=== PATIENT | female | born 1965 | race Hispanic/Latino ===

== ENCOUNTER 2019-07-11 17:02 | Emergency (ER) | payer SELFPAY ==
[2019-07-11] MEDS ORDERED: CYCLOBENZAPRINE 10 MG TAB ONE (17:46)
[2019-07-11] MEDS ORDERED: LIDOCAINE 4% PATCH ONE (17:47)
[2019-07-11] MEDS ORDERED: KETOROLAC 30 MG/ML INJ ONE (17:47)
[2019-07-11] MEDS ORDERED: HYDROCODONE/APAP 10/325 TAB ONE (17:47)
[2019-07-11] MEDS ORDERED: dexAMETHasone 10 MG/ML VIAL ONE (18:46)
--- NOTE | 2019-07-11 19:15 | EDPHYS ---
Physician Documentation [facility] Name: Joselin Dodge Age: 53 yrs Sex: Female : 1965 Arrival Date: 07/11/2019 Time: 17:05 Bed 19 Private MD: ED Physician Hamilton Thrasher HPI: 07/10 17:32 This 53 yrs old Female presents to ER via Wheelchair with complaints of Back pm1 Pain. 17:32 The patient presents with pain that is acute. The symptoms are located in the right low pm1 back. Onset: The symptoms/episode began/occurred just prior to arrival. The pain radiates to the right leg. Associated signs and symptoms: Pertinent negatives: abdominal pain, chest pain, dysuria, fever, headache, nausea, vomiting, weakness. The problem was sustained when lifting boxes. Modifying factors: The patient symptoms are alleviated by nothing, the patient symptoms are aggravated by movement. Severity of symptoms: in the emergency department the symptoms are actually worse. The patient has not experienced similar symptoms in the past. The patient has not recently seen a physician. Patient was moving today and she lifted an object with her right arm and then she felt a pull and pain in her right lower back. Right lower back pain radiates to right leg. Patient reports a history of herniated discs. 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 - Social history:: Smoking status: Patient denies any tobacco usage or history of. ROS: 18:06 Constitutional: Negative for fever, chills, and weight loss, Neck: Negative for injury, pm1 pain, and swelling, Cardiovascular: Negative for chest pain, palpitations, and edema, Respiratory: Negative for shortness of breath, cough, wheezing, and pleuritic chest pain. 18:06 : Negative for injury, bleeding, discharge, and swelling, MS/Extremity: Negative for injury and deformity, Skin: Negative for injury, rash, and discoloration, Neuro: Negative for headache, weakness, numbness, tingling, and seizure. 18:06 Abdomen/GI: Positive for nausea, vomiting, and diarrhea, Negative for abdominal pain, constipation. 18:06 Back: Positive for flank pain, on the right. Exam: 18:06 Constitutional: This is a well developed, well nourished patient who is awake, alert, pm1 and in no acute distress. Head/Face: Normocephalic, atraumatic. Chest/axilla: Normal chest wall appearance and motion. Nontender with no deformity. No lesions are appreciated. 18:06 Skin: Warm, dry with normal turgor. Normal color with no rashes, no lesions, and no evidence of cellulitis. MS/ Extremity: Pulses equal, no cyanosis. Neurovascular intact. Full, normal range of motion. 18:06 Cardiovascular: Exam negative for acute changes, Rate: normal, Rhythm: regular, Pulses: no pulse deficits are appreciated, Edema: is not appreciated. 18:06 Respiratory: Exam negative for acute changes, respiratory distress, shortness of breath, wheezing. 18:06 Back: normal spinal alignment noted, vertebral tenderness, is not appreciated, muscle spasm, is appreciated in the right low back. 18:06 Neuro: Exam negative for acute changes, Orientation: is normal, Mentation: is normal, Motor: is normal, moves all fours, strength is normal, strength is 5/5 in all extremities. Vital Signs: 17:25 BP 130 / 86; Pulse 98; Resp 16; Temp 98.0; Pulse Ox 98% on R/A; Pain 10/10; iw 19:06 BP 113 / 79; Pulse 71; Resp 16; Pulse Ox 100% ; bp 19:50 BP 113 / 86; Pulse 67; Resp 17 S; Pulse Ox 100% on R/A; Pain 5/10; ca1 MDM: 17:23 Patient medically screened. pm1 18:20 Data reviewed: vital signs. Data interpreted: Pulse oximetry: on room air is 98 %. pm1 Interpretation: normal. 19:14 Counseling: I had a detailed discussion with the patient and/or guardian regarding: the pm1 historical points, exam findings, and any diagnostic results supporting the discharge/admit diagnosis, the need for outpatient follow up, a family practitioner, to return to the emergency department if symptoms worsen or persist or if there are any questions or concerns that arise at home. Administered Medications: 17:40 Drug: Lidoderm 5 % (700 mg/patch) 1 patches Route: Topical; Site: affected area; bp 17:40 Drug: [place] 10 mg-325 mg 1 tabs Route: PO; bp 18:54 Follow up: Response: Pain is decreased bp 17:40 Drug: TORadol 60 mg Route: IM; Site: right gluteus; bp 18:55 Follow up: Response: Pain is decreased bp 17:40 Drug: Flexeril 10 mg Route: PO; bp 18:55 Follow up: Response: No adverse reaction bp 18:54 Drug: Decadron 10 mg Route: IM; Site: right deltoid; bp 18:55 Follow up: Response: No adverse reaction bp 19:41 Drug: fentaNYL (PF) 25 mcg {Note: RASS - 0.} Route: IM; Site: right gluteus; ca1 19:56 Follow up: Response: No adverse reaction; Pain is decreased ca1 Disposition: 07/11/19 19:14 Discharged to Home. Impression: Lumbago with sciatica, right side, Low back pain. - Condition is Stable. - Discharge Instructions: Back Pain, Adult, Muscle Strain, Musculoskeletal Pain, Sciatica, Back Injury Prevention, [id number]. - Prescriptions for Lidoderm 5 % Topical adhesive patch,medicated - apply 1 patch by TRANSDERMAL route once daily As needed; 30 Transdermal Patch. Tylenol- Codeine #3 300-30 mg Oral Tablet - take 2 tablet by ORAL route every 6 hours As needed; 30 tablet. Cyclobenzaprine 10 mg Oral Tablet - take 1 tablet by ORAL route every 8 hours As needed; 30 tablet. Medrol (Christiano) 4 mg Oral Tablets, Dose Pack - take 1 tablet by ORAL route as directed - follow package instructions; 1 packet. - Medication Reconciliation Form, Thank You Letter, Antibiotic Education, Prescription Opioid Use form. - Follow up: Emergency Department; When: As needed; Reason: Worsening of condition. Follow up: Private Physician; When: 2 - 3 days; Reason: Recheck today's complaints, Continuance of care, Re-evaluation by your physician. - Problem is new. - Symptoms have improved. Addendum: 07/15/2019 07:51 Co-signature as Attending Physician, Hamilton Thrasher MD. r n Signatures: Hamilton Thrasher MD MD rn Geraldine, Brian, SUSTAINABILITY COMMUNICATOR SUSTAINABILITY COMMUNICATOR pm1 Miguel Whitehead RN RN bp Lesley Padgett RN RN ca1 Corrections: (The following items were deleted from the chart) 07/10 19:15 19:14 07/11/2019 19:14 Discharged to Home. Impression: Low back pain; Strain of muscle, pm1 fascia and tendon of lower back. Condition is Stable. Discharge Instructions: Back Pain, Adult, Muscle Strain, Musculoskeletal Pain, Back Injury Prevention, [id number]. Prescriptions for Lidoderm 5 % Topical adhesive patch,medicated - apply 1 patch by TRANSDERMAL route once daily As needed; 30 Transdermal Patch, Tylenol-Codeine #3 300-30 mg Oral Tablet - take 2 tablet by ORAL route every 6 hours As needed; 30 tablet, Cyclobenzaprine 10 mg Oral Tablet - take 1 tablet by ORAL route every 8 hours As needed; 30 tablet, Diclofenac Sodium 75 mg Oral Tablet Sustained Release - take 1 tablet by ORAL route 2 times per day; 30 tablet. and Forms are Medication Reconciliation Form, Thank You Letter, Antibiotic Education, Prescription Opioid Use. Follow up: Emergency Department; When: As needed; Reason: Worsening of condition. Follow up: Private Physician; When: 2 - 3 days; Reason: Recheck today's complaints, Continuance of care, Re-evaluation by your physician. Problem is new. Symptoms have improved. pm1 19:59 19:15 07/11/2019 19:14 Discharged to Home. Impression: Lumbago with sciatica, right ca1 sideLow back pain. Condition is Stable. Discharge Instructions: Back Pain, Adult, Muscle Strain, Musculoskeletal Pain, Back Injury Prevention, [id number]. Prescriptions for Lidoderm 5 % Topical adhesive patch,medicated - apply 1 patch by TRANSDERMAL route once daily As needed; 30 Transdermal Patch, Tylenol-Codeine #3 300-30 mg Oral Tablet - take 2 tablet by ORAL route every 6 hours As needed; 30 tablet, Cyclobenzaprine 10 mg Oral Tablet - take 1 tablet by ORAL route every 8 hours As needed; 30 tablet, Diclofenac Sodium 75 mg Oral Tablet Sustained Release - take 1 tablet by ORAL route 2 times per day; 30 tablet. and Forms are Medication Reconciliation Form, Thank You Letter, Antibiotic Education, Prescription Opioid Use. Follow up: Emergency Department; When: As needed; Reason: Worsening of condition. Follow up: Private Physician; When: 2 - 3 days; Reason: Recheck today's complaints, Continuance of care, Re-evaluation by your physician. Problem is new. Symptoms have improved. pm1 07/11 00:02 07/10 18:06 Back: Positive for flank pain, on the left, pm1 pm1
--- NOTE | 2019-07-11 19:15 | ER ---
Nurse's Notes [facility] Name: Joselin Dodge Age: 53 yrs Sex: Female : 1965 Arrival Date: 07/11/2019 Time: 17:05 Bed 19 Private MD: Diagnosis: Low back pain;Lumbago with sciatica, right side Presentation: 07/10 17:25 Chief complaint: Patient states: right low back pain radiating to right leg after iw reaching over to grab something in her car, hx of bulging discs. Coronavirus screen: Proceed with normal triage. Patient denies a cough. Patient denies shortness of breath or difficulty breathing. Patient denies measured and/or subjective temperature greater than 100.4F prior to today's visit. Patient denies travel on a cruise ship or to a country the [facility] currently lists as an affected area. Patient denies contact with known and/or suspected case of COVID-19. Ebola Screen: Patient negative for fever greater than or equal to 101.5 degrees Fahrenheit, and additional compatible Ebola Virus Disease symptoms Patient denies exposure to infectious person. Patient denies travel to an Ebola-affected area in the 21 days before illness onset. No symptoms or risks identified at this time. Initial Sepsis Screen: Does the patient meet any 2 criteria? No. Patient's initial sepsis screen is negative. Does the patient have a suspected source of infection? No. Patient's initial sepsis screen is negative. Risk Assessment: Do you want to hurt yourself or someone else? Patient reports no desire to harm self or others. Onset of symptoms was July 11, 2019. 17:25 Method Of Arrival: Wheelchair iw 17:25 Acuity: GILBERTO 4 iw Triage Assessment: 17:36 General: Appears in no apparent distress. comfortable, Behavior is cooperative, bp appropriate for age, anxious. Pain: Complains of pain in back. EENT: No deficits noted. Neuro: No deficits noted. Cardiovascular: No deficits noted. Respiratory: No deficits noted. GI: No signs and/or symptoms were reported involving the gastrointestinal system. : No signs and/or symptoms were reported regarding the genitourinary system. Derm: No deficits noted. Musculoskeletal: Circulation, motion, and sensation intact. Range of motion: intact in all extremities. 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 - Social history:: Smoking status: Patient denies any tobacco usage or history of. Screenin:38 Abuse screen: Denies threats or abuse. Denies injuries from another. Nutritional bp screening: No deficits noted. Tuberculosis screening: No symptoms or risk factors identified. Fall Risk None identified. Assessment: 17:37 General: SEE TRIAGE NOTE. Neuro: Level of Consciousness is awake, alert, obeys bp commands, Oriented to person, place, time, situation, Appropriate for age. 18:53 Reassessment: PT STATES NO RELIEF OF S/S. PROVIDER NOTIFIED AND PT RE-MEDICATED. bp 19:05 Reassessment: Patient appears in no apparent distress at this time. Patient and/or ca1 family updated on plan of care and expected duration. Pain level reassessed. Patient is alert, oriented x 3, equal unlabored respirations, skin warm/dry/pink. 19:50 Reassessment: Patient appears in no apparent distress at this time. Patient is alert, ca1 oriented x 3, equal unlabored respirations, skin warm/dry/pink. Vital Signs: 17:25 BP 130 / 86; Pulse 98; Resp 16; Temp 98.0; Pulse Ox 98% on R/A; Pain 10/10; iw 19:06 BP 113 / 79; Pulse 71; Resp 16; Pulse Ox 100% ; bp 19:50 BP 113 / 86; Pulse 67; Resp 17 S; Pulse Ox 100% on R/A; Pain 5/10; ca1 ED Course: 17:05 Patient arrived in ED. mr 17:16 Brian Chandler, COLIN is PHCP. pm1 17:16 Hamilton Thrasher MD is Attending Physician. pm1 17:27 Triage completed. iw 17:35 Miguel Whitehead, KUNAL is Primary Nurse. bp 17:37 Arm band placed on. bp 17:38 Patient has correct armband on for positive identification. Bed in low position. Call bp light in reach. Side rails up X2. 19:57 No provider procedures requiring assistance completed. Patient did not have IV access ca1 during this emergency room visit. Administered Medications: 17:40 Drug: Lidoderm 5 % (700 mg/patch) 1 patches Route: Topical; Site: affected area; bp 17:40 Drug: [place] 10 mg-325 mg 1 tabs Route: PO; bp 18:54 Follow up: Response: Pain is decreased bp 17:40 Drug: TORadol 60 mg Route: IM; Site: right gluteus; bp 18:55 Follow up: Response: Pain is decreased bp 17:40 Drug: Flexeril 10 mg Route: PO; bp 18:55 Follow up: Response: No adverse reaction bp 18:54 Drug: Decadron 10 mg Route: IM; Site: right deltoid; bp 18:55 Follow up: Response: No adverse reaction bp 19:41 Drug: fentaNYL (PF) 25 mcg {Note: RASS - 0.} Route: IM; Site: right gluteus; ca1 19:56 Follow up: Response: No adverse reaction; Pain is decreased ca1 Outcome: 19:14 Discharge ordered by MD. pm1 19:58 Discharged to home via wheelchair, with significant other. ca1 19:58 Condition: stable 19:58 Discharge instructions given to patient, Instructed on discharge instructions, follow up and referral plans. Demonstrated understanding of instructions, follow-up care, medications, Prescriptions given X 4. 19:59 Patient left the ED. ca1 Signatures: Alee Jiang mr Kenya Montemayor RN RN iw Marinas, Patrick, NP INSTRUCTOR PILOT pm1 Miguel Whitehead RN RN bp Lesley Padgett RN RN ca1
[2019-07-11] MEDS ORDERED: FENTANYL CITR 100 MCG/2 ML ONE (19:45)
[2019-07-11 20:11] VITALS: TEMP 98
[2019-07-11 20:27] VITALS: O2SAT 100
[2019-07-11 20:29] VITALS: BP 113/86
== END 2019-07-11 19:59 | disposition home or self-care (01) ==
LOC: ER 17:02
DX: M54.41 Lumbago with sciatica, right side (principal)
CPT/HCPCS: 96372; 99283; J1100; J3010